=== PATIENT | male | born 1995 | race Two or more races ===

== ENCOUNTER 2017-06-03 14:59 | Emergency (ER) | payer OTHER ==
--- NOTE | 2017-06-03 15:07 | CPEKG ---
Heart Rate: 112 RR Interval: 536 P-R Interval: 164 QRSD Interval: 92 QT Interval: 320 QTC Interval: 437 P [place]: 24 QRS [place]: -1 T Wave [place]: 33 EKG Severity - OTHERWISE NORMAL ECG - EKG Impression: SINUS TACHYCARDIA Electronically Signed By: Trev Bains 03-Jun-2017 15:27:02
[2017-06-03] MEDS ORDERED: NS 1,000 ML IV ONE ×2 (15:19)
[2017-06-03] MEDS ORDERED: AMOXICILLIN/CLAVULANATE POT 875/125 MG TAB PO ONE (15:21)
[2017-06-03] MEDS ORDERED: IBUPROFEN 600 MG TAB PO ONE (15:24)
--- NOTE | 2017-06-03 15:24 | EDPHY ---
H & P Stated Complaint: heart racing, fever, swollon gums Time Seen by Provider: 06/03/17 15:10 HPI/ROS: CHIEF COMPLAINT: Palpitations, fever, gingival pain HISTORY OF PRESENT ILLNESS: Patient is a 22-year-old man brought in by ambulance complaining of fever, heart palpitations and gingival pain as well as body aches. His symptoms 2 days ago. He also had a headache began on Monday. He states that he feels lightheaded like he was going to faint. EKG complains of shortness of breath. No cough. No rhinorrhea. No sore throat. No trauma. He states that he is not eating or drinking well because it hurts his comes. The patient did take 2 tablets of acetaminophen/caffeine prior to arrival. REVIEW OF SYSTEMS: Constitutional: denies: chills, fever, recent illness, recent injury EENTM: Gingival pain denies: blurred vision, double vision, nose congestion Respiratory: Shortness of breath, denies: cough Cardiac: Palpitations denies chest pain Gastrointestinal/Abdominal: denies: abdominal pain, diarrhea, nausea, vomiting, blood streaked stools Genitourinary: denies: dysuria, frequency, hematuria, pain Musculoskeletal: denies: joint pain, muscle pain Skin: denies: lesions, rash, jaundice, bruising Neurological: denies: headache, numbness, paresthesia, tingling, dizziness, weakness Hematologic/Lymphatic: denies: blood clots, easy bleeding, easy bruising Immunologic/allergic: denies: HIV/AIDS, transplant EXAM: GENERAL: Anxious, tachycardic HEAD: Atraumatic, normocephalic. EYES: Pupils equal round and reactive to light, extraocular movements intact, sclera anicteric, conjunctiva are normal. ENT: Extensive gingival inflammation, poor dentition TMs normal, nares patent, oropharynx clear without exudates. Moist mucous membranes. NECK: Normal range of motion, supple without lymphadenopathy or JVD. LUNGS: Breath sounds clear to auscultation bilaterally and equal. No wheezes rales or rhonchi. HEART: Slightly tachycardic, normal rhythm without murmurs, rubs or gallops. ABDOMEN: Soft, nontender, normoactive bowel sounds. No guarding, no rebound. No masses appreciated. BACK: No CVA tenderness, no spinal tenderness, step-offs or deformities EXTREMITIES: Normal range of motion, no pitting or edema. No clubbing or cyanosis. NEUROLOGICAL: Cranial nerves II through XII grossly intact. Normal speech, normal gait. 5/5 strength, normal movement in all extremities, normal sensation PSYCH: Normal mood, normal affect. SKIN: Warm, dry, normal turgor, no visible rashes or lesions. Source: Patient Exam Limitations: No limitations - Personal History Current Tetanus/Diphtheria Vaccine: Yes Current Tetanus Diphtheria and Acellular Pertussis (TDAP): Yes - Medical/Surgical History Hx Asthma: No Hx Chronic Respiratory Disease: No Hx Diabetes: No Hx Cardiac Disease: No Hx Renal Disease: No Hx Cirrhosis: No Hx Alcoholism: No Hx HIV/AIDS: No Hx Splenectomy or Spleen Trauma: No Other PMH: eye injury as a child - Social History Smoking Status: Never smoked Alcohol Use: Sober Constitutional: Initial Vital Signs Temperature (C) 37.9 C 06/03/17 14:59 Heart Rate 119 H 06/03/17 14:59 Respiratory Rate 12 06/03/17 14:59 Blood Pressure 151/84 H 06/03/17 14:59 O2 Sat (%) 95 06/03/17 14:59 O2 Delivery Mode Room Air Allergies/Adverse Reactions: No Known Allergies Allergy (Unverified 06/03/17 15:03) Home Medications: Medication Instructions Recorded Amoxicillin/Clavulanate Pot 875 mg PO BID #14 tab 06/03/17 [Augmentin 875Mg] Panadol 06/03/17 Medical Decision Making - Diagnostics EKG Interpretation: An EKG obtained and was read and documented in trace view. Please see trace view for full reading and report. Sinus tachycardia, no acute ischemic changes ED Course/Re-evaluation: The patient is looking and feeling much better. His heart rate is into the 90s with hydration and antipyretics. I will Start him on Augmentin for trench mouth. He will follow up with dentist. We discussed indications for returning. Differential Diagnosis: Partial list of the Differential diagnosis considered include but were not limited to; acute necrotizing ulcerative gingivitis, influenza, strep throat, sepsis, dehydration and although unlikely based on the history and physical exam , I also considered arrhythmia, acute coronary disease, PE, septic shock. I discussed these differential diagnoses and the plan with the patient as well as the usual and expected course. The patient understands that the diagnosis is provisional and that in medicine we are not always correct and that further workup is often warranted. Usual and customary warnings were given. All of the patient's questions were answered. The patient was instructed to return to the emergency department should the symptoms at all worsen or return, otherwise to followup with the physician as we discussed. - Data Points Laboratory Results: Laboratory Results 06/03/17 15:05 06/03/17 15:05 Medications Given: Discontinued Medications Amoxicillin/Clavulanate Potassium (Augmentin 875mg) 875 mg PO EDNOW ONE PRN Reason: Protocol Stop: 06/03/17 15:22 Last Admin: 06/03/17 15:38 Dose: 875 mg Sodium Chloride (Ns) 1,000 mls @ 0 mls/hr IV ONCE ONE; Wide Open PRN Reason: Protocol Stop: 06/03/17 15:20 Last Admin: 06/03/17 15:37 Dose: 1,000 mls Sodium Chloride (Ns) 1,000 mls @ 0 mls/hr IV ONCE ONE; Wide Open PRN Reason: Protocol Stop: 06/03/17 15:20 Last Admin: 06/03/17 15:37 Dose: 1,000 mls Ibuprofen (Motrin) 600 mg PO EDNOW ONE Stop: 06/03/17 15:25 Last Admin: 06/03/17 15:38 Dose: 600 mg Departure - Departure Disposition: Home, Routine, Self-Care Clinical Impression: ANUG (acute necrotizing ulcerative gingivitis) Condition: Fair Instructions: Trench Mouth (ED) Referrals: Patient,NotPresent [Unknown] - As per Instructions Prescriptions: Amoxicillin/Clavulanate Pot [Augmentin 875Mg] 875 mg PO BID #14 tab
[2017-06-03 15:27] LABS: PLATELET COUNT 223 10^3/uL (150-400)
[2017-06-03 16:46] VITALS: BP 115/67; PULSE 98; RESP 20; TEMP 98.2; O2SAT 98
== END 2017-06-03 16:46 | disposition home or self-care (01) ==
DX: A69.1 Other Vincent's infections (principal); E86.9 Volume depletion, unspecified; R00.2 Palpitations

== ENCOUNTER 2017-06-18 19:49 | Emergency (ER) | payer OTHER ==
[2017-06-18] MEDS ORDERED: NS 1,000 ML IV ONE ×2 (20:10→21:03)
--- NOTE | 2017-06-18 20:14 | EDPHY ---
General - History Smoking Status: Never smoked Time Seen by Provider: 06/18/17 20:00 Narrative: CHIEF COMPLAINT: Dizzy HISTORY OF PRESENT ILLNESS: Patient complains of feeling lightheaded, dizzy, "like I'm going to pass out." Symptoms have been present on and off for the past 2-3 weeks. They are associated with occasional palpitation and chest pain. The dizziness and lightheadedness described as a near syncopal sensation but no spinning sensation. No nausea. No vomiting. No cough. No shortness of breath. No sore throat. No runny nose. No neck pain or stiffness. No headache. Symptoms wax and wane but never fully resolved over the past 2 days. No trauma or injury. He was seen here 2 weeks ago with diagnosis of HSV labialis and treated for this. He is also treated for gingival infection. He has seen a dentist for this. No other associated complaints or modifying factors. REVIEW OF SYSTEMS: Ten systems reviewed and are negative unless otherwise noted in the HPI PCP: None locally SPECIALISTS: None PAST MEDICAL HISTORY: Herpes simplex labialis, gingivitis PAST SURGICAL HISTORY: No recent surgeries SOCIAL HISTORY: Nonsmoker. Originally from [place]. [employer] student FAMILY HISTORY: Noncontributory EXAMINATION General Appearance: Alert, no distress Head: normocephalic, atraumatic Eyes: Pupils equal and round, no conjunctival pallor or injection ENT, Mouth: Mucous membranes moist. Uvula midline. No vesicles or lesions Neck: Normal inspection, supple, non-tender. No meningeal signs. Respiratory: Lungs are clear to auscultation. No wheeze, rhonchi or crackles Cardiovascular: Tachycardic rate. Regular rhythm. No murmur Gastrointestinal: Obese Abdomen is soft and nontender Back: non-tender, no bony abnormalities Neurological: GCS 15. CN II-XII grossly intact. A&O, nonfocal, strength is symmetric in all 4 limbs. No pronator drift. Normal [id number]. Skin: Warm and dry, no rash no petechiae or purpura Extremities: Nontender, no pedal edema Psychiatric: Mood and affect normal DIFFERENTIAL DIAGNOSES: Including but not limited to dehydration, near-syncope, PE, vertigo, HSV infection MDM: 8:10 p.m. Chest pain, palpitations, lightheadedness and sensation near-syncope. He is mildly tachycardic. He is afebrile. He is in no acute distress and exhibiting normal mental status. No meningeal signs. Lungs are clear. I have ordered laboratory studies and there is IV fluid infusing. I have also ordered EKG and chest x-ray. 8:35 p.m. EKG has been obtained and interpreted by Dr. Hoyt. Laboratory studies pending. 9:00 p.m. CBC reveals mild leukocytosis. D-dimer is negative. I've discussed with Dr. Hoyt. We discussed continuation of fluid resuscitation and follow up with Cardiology outpatient for likely Holter monitor. 10:00 p.m. Patient re-evaluated. He has now received nearly 2 L IV fluid. He is feeling significantly better than at time of arrival. We discussed laboratory studies. We discussed the chest x-ray. We discussed my conversation with Dr. Hoyt and the recommendation of outpatient follow-up with Cardiology. He is comfortable with this plan. At this time we will perform a road test in the emergency department plan for discharge home. 10:15 p.m. I have witness the patient successfully ambulating in the emergency department. He continues to feel better after the IV fluid resuscitation. At this point I do feel he is stable for discharge home. I stressed the importance of continued fluid intake at home over the next few days. I discussed follow up with Cardiology again. I stressed the importance of driving restrictions and ED precautions as documented. He is comfortable with this plan. I have answered all of his questions. He is discharged home stable condition. EKG interpretation: Dr. Hoyt Sinus tachycardia with early repolarization SUPERVISION: Patient was independently examined, but I discussed the case with my secondary supervising physician Dr. Hoyt ([facility]) Medical Decision Making: I did not see this patient while he was in the department. For his care was discussed with the PA while the patient was in the department. I agree with treatment plan and management (Bayron Hoyt) - Objective Vital Signs: Initial Vital Signs Temperature (C) 36.8 C 06/18/17 19:52 Heart Rate 110 H 06/18/17 19:52 Respiratory Rate 20 06/18/17 19:52 Blood Pressure 132/85 H 06/18/17 19:52 O2 Sat (%) 95 06/18/17 19:52 O2 Delivery Mode Room Air Allergies/Adverse Reactions: No Known Allergies Allergy (Unverified 06/03/17 15:03) Home Medications: Medication Instructions Recorded Amoxicillin/Clavulanate Pot 875 mg PO BID #14 tab 06/03/17 [Augmentin 875Mg] Panadol 06/03/17 Laboratory Results: Laboratory Results 06/18/17 20:00 06/18/17 20:00 Medications Given: Discontinued Medications Sodium Chloride (Ns) 1,000 mls @ 0 mls/hr IV ONCE ONE PRN Reason: Wide Open Stop: 06/18/17 20:11 Last Admin: 06/18/17 20:23 Dose: 1,000 mls Sodium Chloride (Ns) 1,000 mls @ 0 mls/hr IV EDNOW ONE; Wide Open PRN Reason: Protocol Stop: 06/18/17 21:04 Last Admin: 06/18/17 21:25 Dose: 1,000 mls Departure - Departure Disposition: Home, Routine, Self-Care Clinical Impression: Intermittent palpitations, Dizziness, Chest pain, Dehydration Condition: Good Instructions: Supraventricular Tachycardia (ED), Chest Pain (ED), Heart Palpitations (ED), Driving Restrictions (ED) Additional Instructions: 1. Continue your increase fluid intake over the next few days 2. Contact the on-call straight cutter Dr. Christina as provided 3. Return to emergency department immediately for any sudden change in symptoms , worsening dizziness, change in chest pain, or any syncope 4. Do not drive any vehicles or operate any machinery until re-evaluated by Cardiology Referrals: Fco Christina MD [Medical Doctor] - As per Instructions Stand Alone Forms: School Excuse
[2017-06-18 20:25] LABS: PLATELET COUNT 318 10^3/uL (150-400)
--- NOTE | 2017-06-18 20:37 | CPEKG ---
Heart Rate: 107 RR Interval: 561 P-R Interval: 180 QRSD Interval: 88 QT Interval: 328 QTC Interval: 438 P [place]: 36 QRS [place]: 15 T Wave [place]: 32 EKG Severity - OTHERWISE NORMAL ECG - EKG Impression: SINUS TACHYCARDIA EKG Impression: ST ELEV, PROBABLE NORMAL EARLY REPOL PATTERN Electronically Signed By: Bayron Hoyt 18-Jun-2017 23:28:27
[2017-06-18 22:32] VITALS: BP 122/71; PULSE 86; RESP 18; TEMP 98.8; O2SAT 96
== END 2017-06-18 22:34 | disposition home or self-care (01) ==
DX: R42 Dizziness and giddiness (principal); R00.2 Palpitations; R07.9 Chest pain, unspecified; E86.0 Dehydration; E86.9 Volume depletion, unspecified

== ENCOUNTER 2017-06-25 16:53 | Inpatient (IN) | payer OTHER ==
--- NOTE | 2017-06-25 17:07 | CPEKG ---
Heart Rate: 122 RR Interval: 492 P-R Interval: 168 QRSD Interval: 92 QT Interval: 312 QTC Interval: 445 P [place]: 24 QRS [place]: 6 T Wave [place]: 69 EKG Severity - ABNORMAL ECG - EKG Impression: SINUS TACHYCARDIA EKG Impression: NONSPECIFIC T ABNORMALITIES, LATERAL LEADS Electronically Signed By: Juan Murray 25-Jun-2017 20:15:48
--- NOTE | 2017-06-25 17:08 | EDPHY ---
H & P Stated Complaint: tachycardia/dizzy Source: Patient, Old records Exam Limitations: No limitations - Personal History Current Tetanus/Diphtheria Vaccine: Yes - Medical/Surgical History Hx Asthma: No Hx Chronic Respiratory Disease: No Hx Diabetes: No Hx Cardiac Disease: No Hx Renal Disease: No Hx Cirrhosis: No Hx Alcoholism: No Hx HIV/AIDS: No Hx Splenectomy or Spleen Trauma: No Other PMH: eye injury as a child - Social History Smoking Status: Never smoked Time Seen by Provider: 06/25/17 17:06 HPI/ROS: HPI: This is a 22-year-old male who presents with Chief Complaint: Tachycardia and dizziness Location: Chest Quality: Palpitations Duration: 2 hr Signs and Symptoms: no shortness of breath at rest, no shortness of breath on exertion, no cough, no chest pain, + palpitations, no lower extremity edema, no wheezing, no orthopnea, no paroxysmal nocturnal dyspnea, no fever, no injury/ trauma, no hemoptysis Timing: Acute, constant Severity: Moderate to severe Context: Patient presents today with sudden onset while at lunch of a rapid heart rate and palpitations accompanied by dizziness and lightheadedness. He denies the room spinning. His friends report that the put their hand on his chest in the good feels heart beating rapidly. Patient has drank 3 L of water today. Has not drank caffeine in several days. Patient reports that he has had similar complaints every day this week that lasted a few minutes and resolved on their own with rest and relaxation techniques. Denies any recreational drug use. Patient was here 1 week ago with similar complaints and heart rate was in the high 100 at that time; given fluid resuscitation with resolved tachycardia and advised to follow up with Cardiology. Patient reports that he has not called Cardiology for follow-up appointment and Holter monitor. He plans on calling tomorrow which is Monday. Denies any family history of cardiac problems. When patient 1st arrived to triage his heart rate was 242. The triage nurse had perform of the sulfa maneuver and his heart rate came down into the 120. Patient reports that his dizziness and lightheadedness and mild headache are resolving. Denies any chest pain/lower extremity edema/carpal pedal spasm. Modifying Factors: None Comment: ROS: see HPI Constitutional: No fever, no chills, no weight loss Eyes: No blurred vision Respiratory: No shortness of breath, no cough Cardiovascular: No chest pain, + palpitations, no lower extremity edema Gastrointestinal: No nausea, no vomiting, no diarrhea Genitourinary: No dysuria Extremities: No myalgias Neurologic: No weakness, no numbness Skin: No rashes Hematologic: No bruising, no bleeding MEDICAL/SURGICAL/SOCIAL HISTORY: Medical history: Generally healthy. Does not take any regular medications. Surgical history: Denies Social history: Student. CONSTITUTIONAL: Obese air a polite and cooperative nontoxic appearing male, awake and alert, no obvious distress HEENT: Atraumatic and normocephalic, PERRL, EOMI. Tympanic membranes clear. Oropharynx clear, no exudate and moist pink mucosa. Airway patent. No lymphadenopathy. No meningismus. Cardiovascular: Normal S1/S2, sinus tachycardia, regular rhythm, without murmur rub or gallop. PULMONARY/CHEST: Symmetrical and nontender. Clear to auscultation bilaterally. Good air movement. No accessory muscle usage. ABDOMEN: Soft, nondistended, nontender, no rebound, no guarding, no peritoneal signs, no masses or organomegaly. No CVAT. EXTREMITIES: 2/2 pulses, strength 5/5, no deformities, no clubbing, no cyanosis or edema. NEUROLOGICAL: no focal neuro deficits. GCS 15. SKIN: Warm and dry, no erythema. no rash. Good capillary refill. (Hermelinda Dunn) Constitutional: Initial Vital Signs Temperature (C) 36.8 C 06/25/17 16:56 Heart Rate 242 H 06/25/17 16:56 Respiratory Rate 18 06/25/17 16:56 Blood Pressure 115/94 H 06/25/17 16:56 O2 Sat (%) 97 06/25/17 16:56 O2 Delivery Mode Room Air Allergies/Adverse Reactions: No Known Allergies Allergy (Verified 06/25/17 16:55) Home Medications: Medication Instructions Recorded NK [No Known Home Meds] 06/25/17 Medical Decision Making - Diagnostics EKG Interpretation: 12 lead EKG is interpreted in Trace master View by emergency department physician. (Mahi Bowser) ED Course/Re-evaluation: Old records reviewed and it appears that this is the patient's 3rd visit for palpitations and tachycardia. One week ago his labs were unremarkable including an unremarkable D-dimer. Vital signs at bedside give a heart rate of a 122. Will obtain laboratory studies including TSH and magnesium level. EKG reviewed with attending shows sinus tachycardia with a rate of 122 beats per minute. No acute ischemic changes. Patient given 1 L normal saline and IV Ativan 1 mg. Labs reviewed and grossly unremarkable. This is the patient's 3rd visit in 1 month for palpitations and tachycardia; suspect paroxysmal tachyarrhythmia; will need admission for further evaluation. 1810: ED decision to consult for admission. Spoke with Dr. Carlos, hospitalist , who kindly agrees to admit patient for further evaluation and treatment. This patient was seen under the supervision of my secondary supervising physician. I evaluated care for this patient independently. Discussed this patient with Dr. Bowser who did see the patient. (Hermelinda Dunn) Differential Diagnosis: Differential diagnosis includes but is not limited to will Parkinson's white, ventricular tachycardia syndromes, pulmonary embolism, electrolyte imbalance, thyroid disease, arrhythmia. (Hermelinda Dunn) Other Provider: I have evaluated and participated in the management of this patient. My co- signature indicates that I have reviewed this chart and that I agree with the findings and the plan of care as documented. 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 He tells me that he has been experiencing a rapid heart rate daily for the past week. When this occurs he begins to feel lightheaded, as if he might faint. He has had some mild chest pain, none currently. He has not been aware of hyperventilation or carpopedal spasm with any of these events. He is a student and has some stress surrounding his studies but does not feel that he is anxious in general. No family history of cardiac arrhythmia early coronary artery disease. He does not use stimulants of any kind. He does not use tobacco or alcohol. On exam he is awake alert and appropriate. No thyromegaly. Lungs are clear to auscultation. Heart is tachycardic and regular. Abdomen is obese, soft, nontender. No lower extremity edema or calf tenderness. Per the triage nurse he had a heart rate over 200 on arrival. With Valsalva maneuver his heart rate decreased to around 120. I suspect that he has a paroxysmal tachyarrhythmia. I am recommending hospitalization for continued cardiac monitoring and Cardiology consultation. Although it is possible that these episodes are panic attacks, I think that is unlikely. Thyroid studies are pending. I reviewed his labs. I reviewed his EKG. (Mahi Bowser) - Data Points Laboratory Results: Laboratory Results 06/25/17 17:11 06/25/17 17:11 18 06/25/17 17:11 17:11 WBC 10.23 10^3/uL H 10^3/uL (3.80-9.50) RBC 6.05 10^6/uL 10^6/uL (4.40-6.38) Hgb 17.1 g/dL g/dL (13.7-17.5) Hct 50.0 % % (40.0-51.0) MCV 82.6 fL fL (81.5-99.8) MCH 28.3 pg pg (27.9-34.1) MCHC 34.2 g/dL g/dL (32.4-36.7) RDW 13.2 % % (11.5-15.2) Plt Count 289 10^3/uL 10^3/uL (150-400) MPV 9.8 fL fL (8.7-11.7) Neut % (Auto) 67.9 % % (39.3-74.2) Lymph % (Auto) 22.7 % % (15.0-45.0) [place] % (Auto) 8.2 % % (4.5-13.0) Eos % (Auto) 0.3 % L % (0.6-7.6) Baso % (Auto) 0.5 % % (0.3-1.7) Nucleat RBC Rel Count 0.0 % % (0.0-0.2) Absolute Neuts (auto) 6.95 10^3/uL H 10^3/uL (1.70-6.50) Absolute Lymphs (auto) 2.32 10^3/uL 10^3/uL (1.00-3.00) Absolute Monos (auto) 0.84 10^3/uL H 10^3/uL (0.30-0.80) Absolute Eos (auto) 0.03 10^3/uL 10^3/uL (0.03-0.40) Absolute Basos (auto) 0.05 10^3/uL 10^3/uL (0.02-0.10) Absolute Nucleated RBC 0.00 10^3/uL 10^3/uL (0-0.01) Immature Gran % 0.4 % % (0.0-1.1) Immature Gran # 0.04 10^3/uL 10^3/uL (0.00-0.10) Sodium 144 mEq/L mEq/L (135-145) Potassium 4.0 mEq/L mEq/L (3.5-5.2) Chloride 102 mEq/L mEq/L (97-110) Carbon Dioxide 25 mEq/l mEq/l (22-31) Anion Gap 17 mEq/L H mEq/L (8-16) BUN 8 mg/dL mg/dL (7-23) Creatinine 0.9 mg/dL mg/dL (0.7-1.3) Estimated GFR > 60 Glucose 98 mg/dL mg/dL (70-100) Calcium 10.4 mg/dL mg/dL (8.5-10.4) Magnesium 1.9 mg/dL mg/dL (1.6-2.3) Troponin I < 0.012 ng/mL ng/mL (0.000-0.034) NT-Pro-B Natriuret Pep < 11 pg/mL pg/mL (0-125) TSH 1.630 uIU/mL uIU/mL (0.465-4.680) Medications Given: Discontinued Medications Sodium Chloride (Ns) 1,000 mls @ 0 mls/hr IV EDNOW ONE; Wide Open PRN Reason: Protocol Stop: 06/25/17 17:15 Last Admin: 06/25/17 17:27 Dose: 1,000 mls Lorazepam (Ativan Injection) 1 mg IVP EDNOW ONE Stop: 06/25/17 17:15 Last Admin: 06/25/17 17:26 Dose: 1 mg Departure - Departure Disposition: [facility] Inpatient Acute Clinical Impression: Tachyarrhythmia Condition: Fair
[2017-06-25] MEDS ORDERED: LORazepam 2 MG/ML INJ IVP ONE (17:14)
[2017-06-25] MEDS ORDERED: NS 1,000 ML IV ONE (17:14)
[2017-06-25 17:25] LABS: PLATELET COUNT 289 10^3/uL (150-400)
[2017-06-25] MEDS ORDERED: ONDANSETRON 4 MG/2 ML VIAL IVP PRN (21:06)
[2017-06-25] MEDS ORDERED: ONDANSETRON DISINTEGRATING 4 MG TAB PO PRN (21:06)
[2017-06-25] MEDS ORDERED: ACETAMINOPHEN 325 MG TAB PO PRN (21:06)
--- NOTE | 2017-06-25 21:43 | GHP ---
[f rep st] HISTORY AND PHYSICAL DATE OF ADMISSION: 06/25/2017 CHIEF COMPLAINT: Palpitations. HISTORY OF PRESENT ILLNESS: This is a 22-year-old male, who had been doing well until about a month ago. He started developing episodes of heart palpitations associated with dizziness and diaphoresis. He had been to the emergency department a few times. He was recently diagnosed with gingivitis and HSV. He received some medications for that. It seems like the symptoms resolved when he was on med icines. However, after he stopped, he again developed these episodes. They have been increasing in frequency. Today, he had the sudden onset of a rapid heart rate and palpitations, associated with di zziness, lightheaded, and the room spinning. When he arrived at triage, it appeared his heart rate w as 242, and triage had him perform a Valsalva maneuver. His heart rate has come down to the 120s. Brittani osborn currently does not have any further symptoms. Before a month ago, he had no real problems like thi s. He is not having any angina-type symptoms. He does admit to snoring at night and apnea, but not any daytime sleepiness. PAST MEDICAL HISTORY: None. MEDICATIONS: None. SOCIAL HISTORY: A student. No smoking. No drug use. FAMILY HISTORY: No cardiac disease. PHYSICAL EXAMINATION: VITAL SIGNS: Afebrile, blood pressure 127/79, heart rate 120, oxygen saturati on 97% on room air. GENERAL: The patient is well developed and in no apparent distress. HEENT: No nicteric sclerae. Extraocular movements intact. Moist mucous membranes. NECK: Supple. No thyrome tima. LUNGS: Good effort. Clear to auscultation bilaterally. CARDIOVASCULAR: Regular rate and rh ythm. Slightly tachycardic. No murmurs, rubs, or gallops. ABDOMEN: Positive bowel sounds. Soft, nontender, nondistended. No hepatosplenomegaly. EXTREMITIES: No clubbing, cyanosis, or edema. SKI N: Without rash. Warm, dry, intact. NEUROLOGIC: Alert and oriented x3. Moving all 4 extremities e qually. PSYCHIATRIC: Normal affect. LABORATORY DATA: White blood cell count is slightly elevated. Chemistries normal. TSH is negative. ASSESSMENT: This is a 22-year-old male presenting with palpitations, probably some type of tachyarrh ythmia. PLAN: Rule out tachyarrhythmia. The patient will be monitored on telemetry. We will get an echocar diogram. We will probably have Cardiology see the patient. If we do not any arrhythmia, probably se nd home on a Holter monitor. /[id number]/MODL
--- NOTE | 2017-06-26 09:02 | CPEKG ---
Heart Rate: 81 RR Interval: 741 P-R Interval: 188 QRSD Interval: 94 QT Interval: 360 QTC Interval: 418 P [place]: 25 QRS [place]: 17 T Wave [place]: -7 EKG Severity - BORDERLINE ECG - EKG Impression: SINUS RHYTHM EKG Impression: BORDERLINE T ABNORMALITIES, INFERIOR LEADS EKG Impression: BORDERLINE REPOL ABNORMALITY, ANT LEADS CONSIDER ISCHEMIA Electronically Signed By: Russell Reddy 26-Jun-2017 10:27:01
--- NOTE | 2017-06-26 13:34 | HOSPPROG ---
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 -start metoprolol -ECHO pending -rule out DVT/PE -outpatient cardiology follow-up to consider EP study with ablation * Left foot pain -check US rule out DVT * Obesity BMI 42 Subjective: Recurrent tachycardia, aborted with valsalva Objective: Vital Signs Temp Pulse Resp BP Pulse Ox 37.1 C 117 H 12 132/81 H 97 06/26/17 12:00 06/26/17 12:00 06/26/17 12:00 06/26/17 12:00 06/26/17 12:00 06/25/17 06/26/17 06/27/17 05:59 05:59 05:59 Intake Total 1300 120 Balance 1300 120 EKG viewed, my personal interpretation is - NSR, early repol tele - recurrent SVT Laboratory Tests 06/25/17 17:11 Troponin I < 0.012 NT-Pro-B Natriuret Pep < 11 TSH 1.630 - Physical Exam Constitutional: no apparent distress, appears nourished, not in pain Cardiovascular: regular rate and rhythym, no murmur, rub, or gallop Respiratory: no respiratory distress, no rales or rhonchi, clear to auscultation Gastrointestinal: normoactive bowel sounds, soft, non-tender abdomen, no palpable masses Skin: no rashes or abrasions, no fluctuance, no induration Neurologic: AAOx3, sensation intact bilaterally Psychiatric: interacting appropriately, not anxious, not encephalopathic, thought process linear ICD10 Worksheet Patient Problems: Problems Problem Status Onset Tachyarrhythmia Acute
[2017-06-26] MEDS: METOPROLOL TARTRATE 25 MG TAB PO SCH ×2 (13:42→20:49)
--- NOTE | 2017-06-26 14:00 | ASMTCMCOM ---
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 Discussed in rounds this AM, friends present. Pt will have cardiology consult. Anticipate that pt will dc home independantly when medically stable. CM available if needs arise. Date Signed: 06/26/2017 01:55 PM Electronically Signed By:Sonia Sandra RN
--- NOTE | 2017-06-26 14:27 | PDMN ---
Medical Necessity Medical necessity: Patient meets inpatient criteria per physician note and MCG M -510 Supraventricular Arrhythmias (recurrent SVT after hospitalization, LOS will be > 2 midnights for ongoing eval (pending US for poss DVT, echo) and treatment, including initiation of metoprolol.)
--- NOTE | 2017-06-26 15:32 | ECHO ---
[email or web address] [address] [address] Main: [phone] Fax: Transthoracic Echocardiogram Name: SULTAN BRODY MR#: [id number] Study Date: 06/26/2017 Study Time: 08:09 AM Date of : 1995 Age: 22 year(s) Height: 175.3 cm (69 in.) Weight: 129.73 kg (286 lb.) BSA: 2.4 m2 Gender: Male Examination: Echo Indication: tachycardia Image Quality: Adequate Contrast: Requested by: Vickie Carlos BP: / Heart Rate: Rhythm: Tachycardia Indication: tachycardia Procedure Staff Home Improvement Advisor: Mariana Cheney [facility] Reading Physician: Russell Alfaro MD Requesting Provider: Conclusions: Normal size left ventricle. No LV hypertrophy. Normal global systolic LV function. EF is 70 %. No regional wall motion abnormality. Normal diastolic LV function. Normal size right ventricle. The left atrium is normal in size. The right atrium is normal in size. The mitral valve is normal in appearance and function. There is no mitral valve regurgitation. The aortic valve is normal in appearance and function. There is no aortic valve regurgitation. The tricuspid valve is normal in appearance and function. There is no tricuspid valve regurgitation. The pulmonic valve is normal in appearance and function. The aorta is normal. Normal size aortic root measuring 3.1 cm. Normal size ascending aorta measuring 2.9 cm. Measurements: Chambers Valvular Assessment AV/MV Valvular Assessment TV/PV Normal Normal Normal Name Value Range Name Value Range Name Value Range Ao Doreen (MM): 3.1 cm (2.2 cm-3.7 AV Vmax: 1.05 m/s (1 m/s-1.7 PV Vmax: 1.09 m/s (0.6 m/s-0.9 cm) m/s) m/s) IVSd (2D): 0.9 cm (0.6 cm-1.1 AV maxP mmHg ( - ) PV PGmax: 5 mmHg ( - ) cm) LVOT Vmax: 1.09 m/s (0.7 m/s-1.1 LVDd (2D): 4.6 cm (4.2 cm-5.9 m/s) cm) MV E Vmax: 0.85 m/s ( - ) Patient: SULTAN BRODY Study Date: 06/26/2017 Page 1 of 2 08:09 AM LVDs (2D): 2.8 cm (2.1 cm-4 MV A Vmax: 0.47 m/s ( - ) cm) MV E/A: 1.81 ( - ) LVPWd (2D): 0.9 cm (0.6 cm-1 cm) LVEF (BP): 70 % (>=55 %) RVDd(2D): 3.5 cm (1.9 cm-3.8 cmmm) Continued Measurements: Chambers Valvular Assessment AV/MV Name Value Name Value LADs Lon.6 cm MV E/E' Septal: 10.90 LA Area: 18.5 cm2 MV E/E' Lateral: 7.20 LA Volume: 45 ml LA Volume Index: 18.8 ml/m2 RA Area: 21.0 cm2 Additional Vessels Name Value Ao Ascendin.9 cm Findings: Left Ventricle: Normal size left ventricle. No LV hypertrophy. Normal global systolic LV function. EF is 70 %. No regional wall motion abnormality. Normal diastolic LV function. Right Ventricle: Normal size right ventricle. Normal RV function. Left Atrium: The left atrium is normal in size. Right Atrium: The right atrium is normal in size. Mitral Valve: The mitral valve is normal in appearance and function. There is no mitral valve regurgitation. No mitral stenosis is present. Aortic Valve: The aortic valve is normal in appearance and function. There is no aortic valve regurgitation. No aortic valve stenosis is present. Tricuspid Valve: The tricuspid valve is normal in appearance and function. There is no tricuspid valve regurgitation. Pulmonary artery pressure is not obtained due to inadequate TR jet. Pulmonic Valve: The pulmonic valve is normal in appearance and function. There is no pulmonic regurgitation seen. Aorta: The aorta is normal. Normal size aortic root measuring 3.1 cm. Normal size ascending aorta measuring 2.9 cm. Pericardium: No pericardial effusion. (No Signature Object) Patient: SULTAN BRODY Study Date: 06/26/2017 Page 2 of 2 08:09 AM [id number]
--- NOTE | 2017-06-26 15:51 | GCON ---
[f rep st] CONSULTATION DATE OF CONSULTATION: 06/26/2017 REASON FOR CONSULT: Hospitalists have asked cardiology to consult regarding episodic tachyarrhythmias. HISTORY OF PRESENT ILLNESS: is a 22-year-old male who, over the last month, has started experiencing episodes of rapid heart palpitations. At times he has felt dizzy with diaphoresis with the episodes. They have, on some occasion, self-terminated. However, he has had to go to the emergency room several times, at which time they gave him fluids, which reverted him back to a regular sinus rhythm. He has not taken any medications for management of these tachyarrhythmias previous to this hospitalization. On admission through the emergency room on 06/25/2017, he again had a rapid heart rate, with associated dizziness, lightheadedness and the sense of the room spinning. His heart rate was 242 on arrival, and the Valsalva maneuver was performed, which did bring his heart rate down to the 120. With fluids again, his rate reverted to a sinus rhythm. He was then admitted for further observation. He has not had any chest pain or associated shortness of breath with these episodes. He is in the process of having an overnight sleep study done due to his history of snoring. Today he has had several episodes of tachyarrhythmia, which on telemetry appears to be a paroxysmal sinus tachycardia, with rates into the 130 to 140s. On one occasion he did perform the Valsalva maneuver, which did revert him back to a sinus rhythm. At time of my visit, he is feeling well, with no current complaints. PAST MEDICAL HISTORY: He has none. ALLERGIES: He has no medication allergies. MEDICATIONS: On admission he was on no medications. SOCIAL HISTORY: He is a student. He denies smoking or illicit drug use. FAMILY HISTORY: He has no family history of coronary artery disease, arrhythmias, or valvular heart disease. PHYSICAL EXAMINATION: VITAL SIGNS: Blood pressure 132/81, heart rate 83 and regular, oxygen saturation 97%. HEART: Rate regular, with no murmurs, rubs, or gallops. LUNGS: Lung sounds are clear to auscultation. No wheezing, rales , or rhonchi. NECK: Supple, with no lymphadenopathy. ABDOMEN: Soft and nontender, with normal bowel sounds in all four quadrants. EXTREMITIES: No edema or cyanosis. SKIN: No rash, redness. Warm and dry, with no lesions. NEUROLOGIC: He is alert and oriented. PSYCHIATRIC: He has normal affect. LABORATORY DATA: He had a slightly elevated white blood count on admission of 10.23. D-dimer was negative at 0.27. Chemistry: Sodium 144, potassium 4.0, BUN 8, creatinine 0.9. GFR greater than 60. Glucose 98, magnesium 1.9. Troponin 0.012. NT Pro B natriuretic peptide less than 11. TSH 1.6. EKG showed a regular sinus rhythm, with a rate of 81, QTc 418. RECOMMENDATIONS AND PLAN: Tachyarrhythmia: He has noted several episodes of sinus tachycardia, with rates up to 130-140 beats per minute. He does get dizzy and lightheaded with the episodes. Metoprolol tartrate 25 mg twice daily was started in an attempt to manage the arrhythmias. Echocardiogram has been ordered with results pending at this time. We will plan to continue to observe overnight with the addition of beta arthur therapy. If well tolerated, he likely will be discharged home in the morning. A 30-day telemetry Holter monitoring is recommended at time of discharge to further evaluate for medication response and breakthrough tachyarrhythmias. He will be referred to electrophysiology as an outpatient for further evaluation and treatment options. We will continue to follow along during this hospitalization. Thank you for asking us to be part of this gentleman's care. /[id number]/MODL MTDD
[2017-06-27] MEDS: METOPROLOL TARTRATE 25 MG TAB PO SCH (10:15)
--- NOTE | 2017-06-27 13:43 | PDCARPN ---
Cardiology Progress Note Chief Complaint: Rapid Heart Rate Assessment/Plan: Assessment: Paroxysmal Tachyarrhythmia with Sinus tachycardia rate 140 to 150. Presented to the ER in the evening 06/25/17 with episode of rapid heart rate, with associated dizziness, SOB, and feeling anxious. He spontaneously converted to Sinus Rhythm with fluids. He remained in sinus rhythm during the night. Yesterday afternoon he had another episode that responded to Valsalva Maneuver. Metoprolol Tartrate 25 mg BID was started with good tolerance. However, he did have another breakthrough episode last night. During the night he had another episode of tachycardia with HR 140 to 150. He felt Lightheaded and SOB, with mild chest tightness. He reverted back to Sinus rhythm spontaneously. Electrophysiology has been contacted. I spoke to Dr RICHARDSON, who will evaluate and make treatment recommendations regarding his tachyarrhythmia, later this afternoon. This was discussed with , and he is in agreement with this plan. Plan:EP - Dr Richardson will consult this afternoon. 06/27/17 13:43 Subjective: The fast heart rate last night was stronger than before. He felt lightheadedness and dizziness was worse last night with the fast rates. Reviewed/Discussed With: hospitalist, multidisciplinary team Objective: Vital Signs (8 Hrs) Temp Pulse Resp BP Pulse Ox 06/27/17 11:46 36.8 C 90 21 H 126/74 H 95 06/27/17 08:00 36.8 C 86 12 132/77 H 95 Intake/Output (24 Hrs) 06/26/17 06/27/17 06/28/17 05:59 05:59 05:59 Intake Total 900 Balance 900 Intake: Oral (ml) 900 Other: Number of Voids Toilet 2 Result Diagrams: 06/25/17 17:11 06/25/17 17:11 - Physical Exam Constitutional: no apparent distress, obese Cardiovascular: regular rate and rhythm, no murmurs, no rubs Respiratory: clear to auscultate bilat, no crackles, no wheezes Skin: warm Neurologic: AAOx3 Psychiatric: cooperative, interactive ICD10 Worksheet Patient Problems: Problems Problem Status Onset Tachyarrhythmia Acute
--- NOTE | 2017-06-27 18:29 | PDCARCONS ---
Cardiology Consult Reason for Consult: palpitations Chief Complaint: palpitations Requesting Physician: hospitalist team History of Present Illness: I have been asked to visit with this patient by the hospitalist team. He has had symptoms of palpitations for the last month. Symptoms occur randomly. He has noticed heart rates up to 240 beats per minute, though these high heart rates have not been documented on monitoring. He has had associated lightheadedness. There are no specific triggers. He was able to stop 1 episode yesterday with Valsalva maneuver. There is no family history of palpitations, syncope or sudden . Patient was interviewed on 2 [facility] floor. His roommate and another friend were present in the room at the time of this discussion as was is RN. His roommate told him that the patient snores daily, sleeps with his neck hyperextended and intermittently stops breathing at night. History Information - Allergies/Home Medication List Allergies/Adverse Reactions: No Known Allergies Allergy (Verified 06/25/17 16:55) Home Medications: NK [No Known Home Meds] 06/25/17 [Last Taken Unknown] I have personally reviewed and updated: family history, medical history, social history Past Medical History: - Social History Smoking Status: Never smoked Physical Exam Physical Exam: Temp Pulse Resp BP Pulse Ox 36.8 C 151 H 21 H 126/74 H 95 06/27/17 11:46 06/27/17 16:00 06/27/17 11:46 06/27/17 11:46 06/27/17 11:46 Constitutional: no apparent distress, appears nourished, not in pain Eyes: PERRL, EOMI Ears, Nose, Mouth, Throat: moist mucous membranes, hearing normal Cardiovascular: regular rate and rhythym, no murmur, rub, or gallop Respiratory: no respiratory distress, no rales or rhonchi Gastrointestinal: normoactive bowel sounds, soft, non-tender abdomen Genitourinary: no bladder fullness Skin: warm, normal color Musculoskeletal: full muscle strength, no muscle tenderness Neurologic: AAOx3 Psychiatric: interacting appropriately, not anxious, not encephalopathic, thought process linear Lab and Imaging 06/25/17 17:11 06/25/17 17:11 WBC 10.23 10^3/uL (3.80-9.50) H 06/25/17 17:11 RBC 6.05 10^6/uL (4.40-6.38) 06/25/17 17:11 Hgb 17.1 g/dL (13.7-17.5) 06/25/17 17:11 Hct 50.0 % (40.0-51.0) 06/25/17 17:11 MCV 82.6 fL (81.5-99.8) 06/25/17 17:11 MCH 28.3 pg (27.9-34.1) 06/25/17 17:11 MCHC 34.2 g/dL (32.4-36.7) 06/25/17 17:11 RDW 13.2 % (11.5-15.2) 06/25/17 17:11 Plt Count 289 10^3/uL (150-400) 06/25/17 17:11 MPV 9.8 fL (8.7-11.7) 06/25/17 17:11 Neut % (Auto) 67.9 % (39.3-74.2) 06/25/17 17:11 Lymph % (Auto) 22.7 % (15.0-45.0) 06/25/17 17:11 [place] % (Auto) 8.2 % (4.5-13.0) 06/25/17 17:11 Eos % (Auto) 0.3 % (0.6-7.6) L 06/25/17 17:11 Baso % (Auto) 0.5 % (0.3-1.7) 06/25/17 17:11 Nucleat RBC Rel Count 0.0 % (0.0-0.2) 06/25/17 17:11 Absolute Neuts (auto) 6.95 10^3/uL (1.70-6.50) H 06/25/17 17:11 Absolute Lymphs (auto) 2.32 10^3/uL (1.00-3.00) 06/25/17 17:11 Absolute Monos (auto) 0.84 10^3/uL (0.30-0.80) H 06/25/17 17:11 Absolute Eos (auto) 0.03 10^3/uL (0.03-0.40) 06/25/17 17:11 Absolute Basos (auto) 0.05 10^3/uL (0.02-0.10) 06/25/17 17:11 Absolute Nucleated RBC 0.00 10^3/uL (0-0.01) 06/25/17 17:11 Immature Gran % 0.4 % (0.0-1.1) 06/25/17 17:11 Immature Gran # 0.04 10^3/uL (0.00-0.10) 06/25/17 17:11 D-Dimer < 0.27 ug/mLFEU (0.00-0.50) 06/26/17 14:05 Sodium 144 mEq/L (135-145) 06/25/17 17:11 Potassium 4.0 mEq/L (3.5-5.2) 06/25/17 17:11 Chloride 102 mEq/L (97-110) 06/25/17 17:11 Carbon Dioxide 25 mEq/l (22-31) 06/25/17 17:11 Anion Gap 17 mEq/L (8-16) H 06/25/17 17:11 BUN 8 mg/dL (7-23) 06/25/17 17:11 Creatinine 0.9 mg/dL (0.7-1.3) 06/25/17 17:11 Estimated GFR > 60 06/25/17 17:11 Glucose 98 mg/dL (70-100) 06/25/17 17:11 Calcium 10.4 mg/dL (8.5-10.4) 06/25/17 17:11 Magnesium 1.9 mg/dL (1.6-2.3) 06/25/17 17:11 Troponin I < 0.012 ng/mL (0.000-0.034) 06/25/17 17:11 NT-Pro-B Natriuret Pep < 11 pg/mL (0-125) 06/25/17 17:11 TSH 1.630 uIU/mL (0.465-4.680) 06/25/17 17:11 Visualized and Interpreted EKG results: Yes EKG additional interpertation: I have reviewed all 4 of his EKGs in our EKG system. All of them are consistent with sinus rhythm or sinus tachycardia. Telemetry: Telemetry monitoring from 04/22 3:00 p.m. yesterday showed atrial tachycardia, heart rate 140-150 beats per minute that terminates with vagal maneuvers To sinus rhythm. 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 He is presenting with recurrent atrial tachycardia over the last month. He has been started on metoprolol 25 mg twice daily and continues to have episodes despite this. We will increase his metoprolol to 50 mg twice daily. If this does not resolve his symptoms, consideration could be given to ablation procedure. We could also consider calcium channel blockers or antiarrhythmic drugs which he is reluctant to take. Ablation procedure was reviewed with him at length including its risks which include , mi, CVA, cardiac tamponade, complete AV block requiring permanent pacemaker, deep venous thrombosis, pulmonary embolism, vascular access complications, anesthesia related complications etc. Chances of successful outcome are 90%. P-wave morphology of atrial tachycardia is very similar to his sinus rhythm,However, this is on telemetry monitoring and 12 lead EKG of the arrhythmia has not been obtained, this most likely represents origin near the Jeanie terminalis. His body habitus and history is suggestive of sleep apnea . Strongly recommended to the patient that he have sleep testing performed and advised him regarding weight loss. Echocardiogram will be done during this hospital admission I will see him in follow-up in 3-4 weeks. If beta-arthur therapies controlling his arrhythmia, we will leave him on beta-blockers. Otherwise he will be scheduled for an ablation procedure.
--- NOTE | 2017-06-27 19:12 | HOSPPROG ---
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 Richardson regarding plan US negative for DVT Laboratory Tests 06/26/17 14:05 D-Dimer < 0.27 - Physical Exam Constitutional: no apparent distress, appears nourished, not in pain Cardiovascular: regular rate and rhythym, no murmur, rub, or gallop Respiratory: no respiratory distress, no rales or rhonchi, clear to auscultation Gastrointestinal: normoactive bowel sounds, soft, non-tender abdomen, no palpable masses Skin: no rashes or abrasions, no fluctuance, no induration Neurologic: AAOx3, sensation intact bilaterally Psychiatric: interacting appropriately, not anxious, not encephalopathic, thought process linear ICD10 Worksheet Patient Problems: Problems Problem Status Onset Tachyarrhythmia Acute
--- NOTE | 2017-06-27 20:22 | CPEKG ---
Heart Rate: 104 RR Interval: 577 P-R Interval: 176 QRSD Interval: 92 QT Interval: 324 QTC Interval: 427 P [place]: 28 QRS [place]: 7 T Wave [place]: 42 EKG Severity - OTHERWISE NORMAL ECG - EKG Impression: SINUS TACHYCARDIA Electronically Signed By: Henry Richardson 28-Jun-2017 08:46:58
[2017-06-27] MEDS: METOPROLOL TARTRATE 50 MG TAB PO SCH (20:29)
[2017-06-28] MEDS: METOPROLOL TARTRATE 50 MG TAB PO SCH (10:10)
[2017-06-28 12:06] VITALS: BP 125/83; PULSE 88; RESP 15; TEMP 98.5; O2SAT 93
--- NOTE | 2017-06-28 12:35 | PDCARPN ---
Cardiology Progress Note Assessment/Plan: Assessment: Paroxysmal Tachyarrhythmia with Sinus tachycardia rate 140 to 150. Presented to the ER in the evening 06/25/17 with episode of rapid heart rate, with associated dizziness, SOB, and feeling anxious. He spontaneously converted to Sinus Rhythm with fluids. He remained in sinus rhythm during the night. Yesterday afternoon he had another episode that responded to Valsalva Maneuver. Metoprolol Tartrate 25 mg BID was started with good tolerance. However, he did have another breakthrough episode last night. During the night he had another episode of tachycardia with HR 140 to 150. He felt Lightheaded and SOB, with mild chest tightness. He reverted back to Sinus rhythm spontaneously. Electrophysiology has been contacted. I spoke to Dr RICHARDSON, who will evaluate and make treatment recommendations regarding his tachyarrhythmia, later this afternoon. This was discussed with , and he is in agreement with this plan. Plan:EP - Dr Richardson will consult this afternoon. 06/27/17 13:43 06/28/17 12:28 Dr Richardson consulted yesterday with recommendation for increasing Metoprolol from 25 mg to 50 mg BID. He has tolerated this well, with occasional Brandon rate in 50's. Metoprolol dosing and possible side effects were reviewed with him, with good understanding. He did have a Normal Echocardiogram done on admission. Dr Richardson would like him to have a Formal Sleep Study, and the information for setting up the Sleep Study has been provided to him. He will follow up with Dr Richardson in 3 to 4 weeks at [facility]. Note for absences from School/ Classes has been given to him. He is doing well, and is stable to be discharged at this time. Subjective: I am feeling much better today. Tolerating the medication good. Reviewed/Discussed With: hospitalist, multidisciplinary team Objective: Vital Signs (8 Hrs) Temp Pulse Resp BP Pulse Ox 06/28/17 12:00 36.9 C 88 15 125/83 H 93 06/28/17 07:53 36.8 C 85 16 148/78 H 94 Intake/Output (24 Hrs) 06/27/17 06/28/17 06/29/17 05:59 05:59 05:59 Intake Total 900 2850 Balance 900 2850 Intake: Oral (ml) 900 2850 Other: Number of Voids Toilet 2 2 Result Diagrams: 06/25/17 17:11 06/25/17 17:11 - Physical Exam Constitutional: no apparent distress Cardiovascular: regular rate and rhythm, no murmurs, no rubs Respiratory: clear to auscultate bilat, no crackles, no wheezes Skin: warm, no edema Neurologic: AAOx3 Psychiatric: cooperative, interactive ICD10 Worksheet Patient Problems: Problems Problem Status Onset Tachyarrhythmia Acute
--- NOTE | 2017-06-28 13:57 | PDDCSUM ---
Discharge Summary Discharge Summary: 22 yo male admitted with tachycardia. Started on Metoprolol. Please see below for details per problem list DDX * SVT - atrial tachycardia -recurrent episodes - abort with Valsalva -Metoprolol 50mg BID. Careful with bradycardia. -if metoprolol fails to control symptoms, then ablation -f/u with Dr. Richardson in 3-4 weeks * Morbid Obesity BMI 42, needs weight loss. start exercise * Probable sleep apnea -outpatient sleep study * Left foot pain -US negative for DVT Exam: NAD AAOX3 RRR CTAB S//NT/ND NO LE EDEMA MEDS: SEE MED REC F/U: PER ABOVE TOTAL TIME SPENT ON D/C IS 35 MINS D/W NURSE, CM, CARDIOLOGY, AND PHARMACIST.
== END 2017-06-28 16:35 | disposition home or self-care (01) | DRG 309 ==
LOC: INTOOBSV 18:14 → F2W 20:10 → OBSVTOIN 06-26 13:29
PROVIDERS: ADMIT Internal Medicine; ATTEND Internal Medicine
DX: I47.1 Supraventricular tachycardia (principal); Z68.41 Body mass index [BMI] 40.0-44.9, adult; E66.01 Morbid (severe) obesity due to excess calories; G47.30 Sleep apnea, unspecified; M79.672 Pain in left foot
CPT/HCPCS: 96374; G0378; J2060

== ENCOUNTER 2017-09-12 10:57 | Observation (INO) | payer OTHER ==
--- NOTE | 2017-09-12 11:22 | PDGENHP ---
History & Physical Chief Complaint: Atrial tachycardia Relevant Physical Exam: S1-S2 regular rate and rhythm. Lungs clear to auscultation. Alert and oriented x3 Cardiorespiratory Assessment: Atrial tachycardia , symptomatic. Plan EP study and if tachycardia amenable to ablation is seen, perform ablation at the same time.
[2017-09-12] MEDS ORDERED: NS 1,000 ML IV ONE (11:24)
--- NOTE | 2017-09-12 11:53 | CPEKG ---
Heart Rate: 91 RR Interval: 659 P-R Interval: 168 QRSD Interval: 88 QT Interval: 340 QTC Interval: 419 P [place]: 34 QRS [place]: 8 T Wave [place]: 29 EKG Severity - NORMAL ECG - EKG Impression: SINUS RHYTHM EKG Impression: ST ELEV, PROBABLE NORMAL EARLY REPOL PATTERN Electronically Signed By: Henry Richardson 12-Sep-2017 12:44:24
[2017-09-12] MEDS ORDERED: HEPARIN 10,000 UNIT/10 ML MDV (1,000 UNIT/ML) ONE (12:13)
[2017-09-12] MEDS ORDERED: LIDOCAINE 1% 300 MG/30 ML SDV ONE (12:13)
[2017-09-12] MEDS ORDERED: BUPIVACAINE 0.5% 30 ML SDV ONE (12:13)
[2017-09-12 12:14] LABS: PLATELET COUNT 255 10^3/uL (150-400)
[2017-09-12] MEDS ORDERED: ISOPROTERENOL HCL/D5W 0.2 MG/50 ML BAG IV ONE (12:14)
[2017-09-12 12:26] LABS: INR 0.98 (0.83-1.16); PROTIME(PATIENT) 13.2 SEC (12.0-15.0)
[2017-09-12] MEDS ORDERED: MIDAZOLAM 2 MG/2 ML VIAL IVP ONE (12:56)
--- NOTE | 2017-09-12 12:56 | PDANEPAE ---
ANE Past Medical History - Cardiovascular History Hx Hypertension: No Hx Arrhythmias: Yes Hx Chest Pain: No Hx Coronary Artery / Peripheral Vascular Disease: No Hx CHF / Valvular Disease: No Hx Palpitations: No - Pulmonary History Hx Oxygen in Use at Home: No Hx Sleep Apnea: No - Endocrine History Hx Diabetes: No - Chronic Pain History Chronic Pain: No ANE Review of Systems Review of Systems: ANE Patient History - Allergies Allergies/Adverse Reactions: No Known Allergies Allergy (Verified 06/25/17 16:55) - Smoking Hx Smoking Status: Never smoked ANE Labs/Vital Signs - Labs Result Diagrams: 09/12/17 12:05 09/12/17 12:05 - Vital Signs Height: 176 cm Weight: 130 kg ANE Physical Exam - Airway Neck exam: decreased ROM Mallampati Score: Class 2 Mouth exam: franco - Pulmonary Pulmonary: no respiratory distress - Cardiovascular Cardiovascular: regular rate and rhythym - ASA Status ASA Status: III ANE Anesthesia Plan Anesthesia Plan: general endotracheal anesthesia
[2017-09-12] MEDS ORDERED: PROPOFOL/EMULSION 500 MG/50 ML BOTTLE IV ONE ×6 (13:29→15:02)
[2017-09-12] MEDS ORDERED: ROCURONIUM 100 MG/10 ML VIAL ONE (13:43)
[2017-09-12] MEDS ORDERED: ROCURONIUM 50 MG/5 ML VIAL ONE ×2 (14:36)
[2017-09-12] MEDS ORDERED: PHENYLEPHRINE HCL 100 MCG/ML SYR ONE (15:03)
[2017-09-12] MEDS ORDERED: ATROPINE SULFATE 1 MG/ML VIAL ONE (15:17)
[2017-09-12] MEDS ORDERED: NEOSTIGMINE METHYLSULFATE 10 MG/10 ML MDV ONE (15:32)
--- NOTE | 2017-09-12 15:47 | EPPROC ---
Electrophysiology Procedure Note: DIAGNOSTIC ELECTROPHYSIOLOGIC STUDY Procedures performed: 1. Fluoroscopy 2. EP evaluation with RA/RV/LA pace/record, with arrhythmia induction 3. EP evaluation with RA/RV pace record, insert/reposition catheter, with arrhythmia induction 4. Programmed stimulation + pacing after IV drug INDICATION: Palpitations Atrial tachycardia seen on telemetry monitoring PROCEDURE: Catheters & Anesthesia: The patient arrived in the Electrophysiology Laboratory in the fasting state. The right clavicular region, right groin, & left groin area were prepped & draped in the usual sterile manner. Dr. Jay Stallings administered anesthesia ( propofol only). Appropriate non-invasive blood pressure, pulse oximetry & end- tidal CO2 monitoring was established. All catheters were placed percutaneously using the modified Seldinger technique , and advanced into position under fluoroscopic guidance. One #6 Spanish hexapolar non-deflectable electrode catheter was inserted into the right atrial appendage via the left femoral vein (2mm spacing; except the proximal ring which was 25cm from the tip used for unipolar recordings). One #7 Spanish deflectable octapolar electrode catheter was advanced to the His-bundle position via the left femoral vein (2mm spacing). One #7 Spanish deflectable quadrapolar catheter was advanced to the anteroseptal right ventricle via the right femoral vein. One #7 Spanish deflectable catheter with 10 pairs of electrodes was placed via the right femoral vein into the coronary sinus, SL2 sheath needed to be used due to prominent eustachian ridge. Programmed stimulation was performed from the right atrium, right ventricle and coronary sinus (left atrium). Parahisian pacing demonstrated constant H-A interval with changing V-A intervals and stimulus-A intervals during capture and loss of capture of proximal RBB proving retrograde conduction over AV node. There was no antegrade accessory pathway conduction. Heparin 9000 U was administered. No sustained reentrant tachycardia was induced during programmed stimulation at baseline or during graded doses of isoproterenol up to 4 mcg/min + atropine 1 mg. Sinus rates up to 160 bpm was seen with drug infusion. Upto 3 bts of atrial tachycardia were seen but not targeted for ablation. The catheters were removed. Vascular access sheaths were removed in the EP lab after placing subcutaneous pursestring suture. The patient was transferred to the cardiovascular holding area in stable condition. There were no apparent complications. SCL 630ms AH 60ms HV 40 ms Antegrade WBB 290 ms Retrograde WBB 280 ms No antegrade or retrograde slow AV binu pathway conduction CONCLUSIONS 1. Normal sinus and AV node function. 2. No evidence of accessory AV pathway presence. 3. No sustained arrhythmias induced. 4. No apparent complications. 5. No ablation performed. Patient Problems: Problems Problem Status Onset Tachyarrhythmia Acute
[2017-09-12] MEDS ORDERED: ONDANSETRON 4 MG/2 ML VIAL ONE (16:00)
[2017-09-12] MEDS ORDERED: GLYCOPYRROLATE 0.2 MG/1 ML VIAL ONE (16:01)
--- NOTE | 2017-09-12 17:37 | CPEKG ---
Heart Rate: 91 RR Interval: 659 P-R Interval: 168 QRSD Interval: 86 QT Interval: 332 QTC Interval: 409 P [place]: 37 QRS [place]: 6 T Wave [place]: 9 EKG Severity - ABNORMAL ECG - EKG Impression: SINUS RHYTHM EKG Impression: Early repolarization pattern Electronically Signed By: Henry Richardson 12-Sep-2017 20:30:02
[2017-09-12] MEDS: METOPROLOL TARTRATE 50 MG TAB PO SCH (22:29)
[2017-09-13 04:20] LABS: PLATELET COUNT 272 10^3/uL (150-400)
[2017-09-13 07:24] VITALS: BP 115/65
[2017-09-13] MEDS: METOPROLOL TARTRATE 50 MG TAB PO SCH (07:50)
[2017-09-13] MEDS ORDERED: ASPIRIN 81 MG CHEWABLE TAB PO SCH (09:00)
--- NOTE | 2017-09-13 09:23 | CPEKG ---
Heart Rate: 74 RR Interval: 811 P-R Interval: 168 QRSD Interval: 86 QT Interval: 352 QTC Interval: 391 P [place]: 4 QRS [place]: 5 T Wave [place]: 18 EKG Severity - NORMAL ECG - EKG Impression: SINUS RHYTHM Electronically Signed By: Henry Richardson 13-Sep-2017 12:57:43
--- NOTE | 2017-09-13 11:43 | GDS ---
[f rep st] DISCHARGE SUMMARY DISCHARGE DIAGNOSES: 1. History of atrial tachycardia status post electrophysiologic study in this admission with no craig cible atrial tachycardia on study. 2. Likely sleep apnea. PROCEDURE: 09/12/2017, EP study that showed normal sinus and AV node function with no evidence of ac cessory AV pathway. There were no sustained arrhythmias induced. BRIEF HISTORY: Please see dictated H and P from Dr. Richardson for complete details. In brief, the patient is a 22-year-old male who was admitted to the hospital on 06/26/2017 through 06/28/2017. He was fou nd to be in atrial tachycardia. He was started on metoprolol. He saw Dr. Richardson in clinical followup a nd patient opted for EP study as he wanted to be off of beta arthur therapy. On EP study, there was no inducible atrial tachycardia. The patient is being discharged to home for outpatient followup. PHYSICAL EXAM: VITAL SIGNS: On day of discharge, blood pressure 115/65, heart rate of 67, respirati ons 16, O2 saturation 90% on room air, temperature of 98.1 degrees Fahrenheit. GENERAL: He is a yue y pleasant male in no apparent distress. HEENT: Normocephalic, atraumatic. HEART: Regular rate an d rhythm. LUNGS: Clear. GROIN: Bilateral groin sites without ecchymosis or bruit. LABORATORY DATA: CBC on day of discharge, WBC 13, hemoglobin 14.6, hematocrit 43.7, platelet count 2 72. BMP with sodium 142, potassium 4.3, chloride 106, CO2 24, BUN 12, creatinine 0.8, glucose of 96. RESULTS PENDING: None. DIET: Per previous. ACTIVITY: Groin precautions reviewed. DISCHARGE MEDICATIONS: None. FOLLOWUP INSTRUCTIONS: Followup with Dr. Richardson as scheduled on 10/19/2017 at 3:30 p.m. /[id number]/MODL
== END 2017-09-13 09:44 | disposition home or self-care (01) ==
LOC: FCATH 10:57 → F2W 15:41
PROVIDERS: ADMIT Internal Medicine Cardiovascular Disease; ATTEND Internal Medicine Cardiovascular Disease
PROC: 4A0234Z Measurement of Cardiac Electrical Activity, Percutaneous Approach (ICD-10-PCS; principal; 2017-09-12)
PROC: 4A023FZ Measurement of Cardiac Rhythm, Percutaneous Approach (ICD-10-PCS; principal; 2017-09-12)
DX: I47.1 Supraventricular tachycardia (principal)
CPT/HCPCS: 93005; 93619; 93621; 93623; C1730; C1893; G0378; C1731; J0461; J1644; J2370; J2405; J2704